=== PATIENT | male | born 1970 | race African-American/Black ===

== ENCOUNTER → 2018-06-13 | Outpatient (CLI) | payer OTHER ==
--- NOTE | 2018-06-13 11:21 | Diagnostic Imaging Report ---
EXAMINATION: PA and lateral views of the chest. COMPARISON: None CLINICAL HISTORY: Chronic cough DISCUSSION: The lungs are well-inflated. There is patchy opacity in the lingula and laterally within the right lower lobe with partial loss of the hemidiaphragmatic contour. The lungs are otherwise clear without consolidation or effusion. Tortuous thoracic aorta with normal heart size. No overt pulmonary edema. No acute osseous abnormality. IMPRESSION: Patchy lingular and left lower lobe opacity may reflect atelectasis. However, in the setting of chronic cough, a short-term follow-up chest radiograph (4-6 weeks) is suggested. Alternatively, CT scan of the chest may be performed. Signed by: Dr. Teo Oglesby M.D. on 06/13/2018 11:18 AM
== END ==
LOC: RAD 10:53
PROVIDERS: ATTEND Family Medicine
DX: R05 Cough (principal)
CPT/HCPCS: 71046

== ENCOUNTER → 2018-06-27 | Outpatient (CLI) | payer OTHER ==
--- NOTE | 2018-06-27 15:20 | Diagnostic Imaging Report ---
EXAM: CT Chest without contrast INDICATION: Abnormal chest radiograph, history of cough. COMPARISON: Chest radiograph 06/13/2018. TECHNIQUE: Chest was scanned utilizing a multidetector helical scanner from the lung apex through the level of the adrenal glands without administration of IV contrast. Coronal and sagittal reformations were obtained. Routine protocol was performed. IV CONTRAST: 100 mL of Isovue 370 RADIATION DOSE: Total DLP: 541.8 mGy*cm Estimated effective dose: (DLP x 0.014 x size factor) mSv COMPLICATIONS: None FINDINGS: LINES/ TUBES: None. LUNGS AND AIRWAYS: The central airways are patent. There is a 5 mm subpleural nodular opacity in the right upper lobe on series 3, image 32. A 4 mm groundglass opacity within the left lower lobe adjacent to an area of linear opacity could represent atelectasis or may be infectious or inflammatory. Mild patchy atelectasis within the left lower lobe. No evidence of consolidation to suggest pneumonia PLEURA: The pleural spaces are clear. HEART AND MEDIASTINUM: The thyroid gland is normal. No mediastinal, hilar or axillary lymphadenopathy. No cardiomegaly or pericardial effusion. Coronary atherosclerosis. The main pulmonary artery is enlarged, measuring up to 4.1 cm. UPPER ABDOMEN: Limited noncontrast views of the upper abdomen. There is diffuse fatty liver. Partially seen spleen and adrenal glands appear unremarkable. BONES: No acute osseous abnormality. No suspicious lytic or blastic lesions. SOFT TISSUES: Unremarkable. IMPRESSION: Opacity within the left lower lobe and lingula corresponding to patchy atelectasis. No evidence of pneumonia. Coronary atherosclerosis. Enlarged main pulmonary artery, suggestive of pulmonary arterial hypertension. Diffuse fatty liver. A 5 mm subpleural nodular opacities in the right upper lobe is likely benign in a low risk patient, requiring no further follow-up. If there is clinical risk factor for malignancy such as smoking, a follow-up optional chest CT in 12 months may be considered. Small 4 mm groundglass opacity in the left lower lobe could represent atelectasis or may be infectious or inflammatory. Signed by: Dr. Jenna Leyva MD on 06/27/2018 3:16 PM
== END ==
LOC: CT 13:37
PROVIDERS: ATTEND Family Medicine
DX: R91.8 Other nonspecific abnormal finding of lung field (principal)
CPT/HCPCS: 71250

== ENCOUNTER → 2019-10-03 | Outpatient (CLI) | payer MEDICARE, OTHER ==
--- NOTE | 2019-10-03 12:50 | Diagnostic Imaging Report ---
CT of the chest. Comparison: 06/27/2018 Clinical History: Follow-up lung nodule Technique: Helical CT scan of the chest was performed from just above the thoracic inlet through the adrenal glands. Intravenous contrast administration was not utilized. Coronal and sagittal reconstructions were generated from the raw data. Multiple images were submitted for interpretation. This exam was performed according to our departmental dose-optimization program which includes automated exposure control, adjustment of the mA and/or kV according to patient size Discussion: Lung bailey: The previously described nodule in the right upper lobe apical segment measures 3.3 mm. Previously it was described as a 5 mm nodule. It has smooth margins and is completely surrounded by aerated lung now. The left lower lobe groundglass opacity is not seen. There is some motion artifact in the lung bases. No other significant lung nodules or abnormalities are seen. Central airways: Unremarkable Pleural spaces and pleura: Unremarkable Pulmonary ricky: Normal Mediastinum: Unremarkable Cardiac chambers and pericardium: Unremarkable. There is coronary artery calcification. Systemic great vessels: Flako ascending aorta measures approximately 35 mm. This is on the axial view. On the sagittal view it measures 30.3 mm in its tubular portion. The descending thoracic aorta at the same level, the level of the left pulmonary artery measures 31 mm. Central pulmonary vessels: The main pulmonary artery measures approximately 41.7 mm. Previously it measured 41.3 mm. This is no significant change considering interobserver variation. Thyroid: Unremarkable Lymph nodes: No significant lymphadenopathy Azygos vein: Unremarkable The esophagus: Normal. Thoracic duct: Unremarkable Osseous structures: Unremarkable Upper abdomen: Diffuse hepatic steatosis Body wall: Unremarkable Breasts: Unremarkable Axilla: Unremarkable Lower neck: Minimal atherosclerotic calcification of the left common carotid artery. Impression: Reduction in the size of the right upper lobe pulmonary nodule. The nodular measures approximately 3 mm. Further follow-up is not required. There is dilatation of the main pulmonary artery and thoracic aorta. This can be further evaluated with contrast-enhanced CTA with multiplanar reconstructions. Mild coronary artery calcification. Clinical correlation is requested. Diffuse hepatic steatosis. Clinical correlation is recommended. Signed by: Alan Cox MD on 10/03/2019 12:47 PM
== END ==
LOC: CT 09:25
PROVIDERS: ATTEND Internal Medicine Critical Care Medicine
DX: R91.8 Other nonspecific abnormal finding of lung field (principal)
CPT/HCPCS: 71250